=== PATIENT | female | born 1960 | race Caucasian/White ===

== ENCOUNTER 2017-10-01 09:39 | Emergency (ER) | payer OTHER ==
[~2017-10-01] VITALS: Ht 144.8 cm; Wt 95.3 kg
[2017-10-01 09:43] VITALS: BP 148/66
[2017-10-01] MEDS ORDERED: ACETAMINOPHEN 325 MG TABLET PO ONE (10:30)
[2017-10-01] MEDS ORDERED: ACETAMINOPHEN ES 500 MG TABLET ONE (10:39)
--- NOTE | 2017-10-01 10:40 | NUR ---
LINDSAY AT BS.
== END 2017-10-01 12:27 | disposition home or self-care (01) ==
LOC: ER 09:41
DX: M25.561 Pain in right knee (principal); I10 Essential (primary) hypertension; Z90.89 Acquired absence of other organs
CPT/HCPCS: 73564-TC; A4606; Z7610